=== PATIENT | female | born 1970 | race Hispanic/Latino ===

== ENCOUNTER 2018-11-10 05:30 | Day surgery (SDC) | payer BC ==
[2018-11-09 13:55] VITALS: BP 157/74
[2018-11-09 14:26] LABS: BASOPHILS % (AUTO) 0.8 % (0.0-5.0); EOSINOPHILS % (AUTO) 0.5 % (0.0-8.0); HEMATOCRIT 37.1 % (36-48); LYMPHOCYTES % (AUTO) 21.4 % (21.0-51.0); MEAN CORPUSCULAR HEMOGLOBIN 27.1 pg (27.0-33.0); MEAN CORPUSCULAR HGB CONC 32.1 g/dL (32.0-36.0); MEAN CORPUSCULAR VOLUME 84.5 fL (79-99); MONOCYTES % (AUTO) 6.2 % (3.0-13.0); NEUTROPHILS % (AUTO) 71.1 % (40.0-77.0); PLATELET COUNT (AUTO) 268 K/uL (130-400); RED BLOOD CELL COUNT(AUTO) 4.38 MIL/uL (4.00-5.50); WHITE BLOOD COUNT (AUTO) 7.4 K/uL (4.8-10.8)
[2018-11-09 14:40] LABS: CREATININE 0.6 mg/dL (0.5-1.5); POTASSIUM 3.6 mmol/L (3.5-5.1)
[2018-11-10] VITALS (14 sets, daily range): BP systolic 123–157; BP diastolic 74–89
[~2018-11-10] VITALS: Ht 157.5 cm; Wt 69.3 kg
[~2018-11-10 05:30] MED LIST: METF-444 PO
[2018-11-10] MEDS ORDERED: SODIUM CHLORIDE 0.9% 1000ML 1,000 ML IV ONE (06:08)
[2018-11-10] MEDS ORDERED: MIDAZOLAM HCL 1 MG/ML 2ML VIAL ONE (08:02)
[2018-11-10] MEDS ORDERED: PROPOFOL 10 MG/ML 20ML VIAL IV ONE (08:02)
[2018-11-10] MEDS ORDERED: ROCURONIUM 10MG/1ML SYR 10 MG/ML ML ONE (08:02)
[2018-11-10] MEDS ORDERED: LIDOCAINE PF 2% 5ML ABBOJECT ONE (08:02)
[2018-11-10] MEDS ORDERED: FENTANYL CITRATE PF 50 MCG/1 ML 2ML VIAL ONE ×2 (08:03→08:28)
[2018-11-10] MEDS ORDERED: EPHEDRINE SULFATE 50 MG/ML AMPULE ONE (08:18)
[2018-11-10] MEDS ORDERED: ONDANSETRON HCL 4 MG/2 ML VIAL ONE (08:40)
[2018-11-10] MEDS ORDERED: KETOROLAC TROMETHAMINE 30MG/ML ONE (08:40)
[2018-11-10] MEDS ORDERED: MEPERIDINE-PF 25 MG/ML SYG ONE (08:41)
[2018-11-10] MEDS ORDERED: MORPHINE SULFATE 2 MG/ML 1ML SYG ONE (08:56)
== END 2018-11-10 10:30 | disposition home or self-care (01) ==
LOC: SUH 05:30 → DAH 05:30 → SUH 10:30
PROVIDERS: ATTEND Obstetrics & Gynecology
DX: Z30.2 Encounter for sterilization (principal); E11.9 Type 2 diabetes mellitus without complications; Z83.3 Family history of diabetes mellitus; Z79.84 Long term (current) use of oral hypoglycemic drugs; K21.9 Gastro-esophageal reflux disease without esophagitis
CPT/HCPCS: 36415; 58670; 80048; 82948 ×2; 84703; 85025; 86850; 86900; 86901; A4215; A4351; A4452; A4606; C1769 ×2; J1885; J2001; J2175; J2405; J2704; J3010 ×2; J3490; J7030; J2250